=== PATIENT | female | born 1950 | race Caucasian/White ===

== ENCOUNTER 2020-06-22 05:25 | Day surgery (SDC) | payer MEDICARE, MEDICAID ==
[2020-06-16 12:11] LABS: HEMATOCRIT 36.4 % (36.0-47.0); HEMOGLOBIN 12.1 g/dL (12.0-15.5); MEAN CORPUSCULAR HEMOGLOBIN 30.4 pg (27.0-33.4); MEAN CORPUSCULAR HGB CONC 33.3 g/dL (32.0-36.0); MEAN CORPUSCULAR VOLUME 92 fl (80-97); PLATELET COUNT 169 10^3/uL (150-450); RED BLOOD COUNT 3.98 10^6/uL (3.72-5.28); RED CELL DISTRIBUTION WIDTH 14.4 % (11.5-14.0); WHITE BLOOD COUNT 5.2 10^3/uL (4.0-10.5)
--- NOTE | 2020-06-16 12:40 | RADIOLOGY REPORT (SQ) ---
EXAM DESCRIPTION: CHEST PA/LATERAL IMAGES COMPLETED DATE/TIME: 06/16/2020 11:14 am REASON FOR STUDY: PRE-OP COMPARISON: None. EXAM PARAMETERS: NUMBER OF VIEWS: two views TECHNIQUE: Digital Frontal and Lateral radiographic views of the chest acquired. RADIATION DOSE: NA LIMITATIONS: none FINDINGS: LUNGS AND PLEURA: No opacities, masses or pneumothorax. No pleural effusion. MEDIASTINUM AND HILAR STRUCTURES: No masses or contour abnormalities. HEART AND VASCULAR STRUCTURES: Heart normal size. No evidence for failure. BONES: No acute findings. HARDWARE: None in the chest. OTHER: No other significant finding. IMPRESSION: NO SIGNIFICANT RADIOGRAPHIC FINDING IN THE CHEST. TECHNICAL DOCUMENTATION: JOB ID: [id number] 2010 [employer]- All Rights Reserved Reading location - IP/workstation name: [email or web address]
[2020-06-16 12:45] LABS: ANION GAP 13 (5-19); BLOOD UREA NITROGEN 14 mg/dL (7-20); CALCIUM 9.7 mg/dL (8.4-10.2); CARBON DIOXIDE 26 mmol/L (22-30); CHLORIDE 101 mmol/L (98-107); GLUCOSE 150 mg/dL (75-110); POTASSIUM 3.7 mmol/L (3.6-5.0)
[2020-06-16 12:51] LABS: ALCOHOL < 10 mg/dL (NONE DETECTED)
--- NOTE | 2020-06-17 00:29 | EKG REPORT ---
SEVERITY:- ABNORMAL ECG - SINUS RHYTHM NONSPECIFIC T ABNORMALITIES, LATERAL LEADS : Confirmed by: Al Jessica 17-Jun-2020 00:29:16
[~2020-06-22 05:25] MED LIST: CEFAZOLIN 2 GM/D5W RTU 2 GM/50 ML RTUPB IV ONE; CEFAZOLIN 2 GM/D5W RTU 2 GM/50 ML RTUPB IV PRN; LACTATED RINGERS 1000 ML IV PRN; LIDOCAINE 0.5% INJ-PF (5 MG/ML) 50 ML SDV SUBCUT PRN
[2020-06-22] MEDS ORDERED: FENTANYL CITRATE INJ/PF 100 MCG/2 ML AMPUL ONE ×2 (06:52→10:19)
[2020-06-22] MEDS ORDERED: HYDROMORPHONE HCL INJ/PF 2 MG/ML AMPULE ONE (06:52)
[2020-06-22] MEDS ORDERED: MIDAZOLAM 2 MG/2 ML INJ ONE (06:52)
[2020-06-22] MEDS ORDERED: LIDOCAINE 2% INJ (20 MG/ML) 20 ML MDV ONE (06:53)
[2020-06-22] MEDS ORDERED: PROPOFOL INJ 200 MG/20 ML VIAL IV ONE (06:53)
[2020-06-22] MEDS ORDERED: DEXMEDETOMIDINE INJ 80 MCG/20 ML VIAL IV ONE (06:53)
[2020-06-22] MEDS ORDERED: THROMBIN (BOVINE) 5000 UNIT EPITAXIS KIT ONE (06:59)
[2020-06-22] MEDS ORDERED: BACITRACIN INJ 50,000 UNIT VIAL ONE (06:59)
[2020-06-22] MEDS ORDERED: DEXAMETHASONE SOD PHOSPHATE INJ 4 MG/1 ML VIAL ONE ×2 (07:11→14:40)
[2020-06-22] MEDS ORDERED: PROPOFOL 1,000 MG/100 ML INFUS..BTL IV ONE ×2 (07:50→09:00)
[2020-06-22] MEDS ORDERED: ONDANSETRON HCL INJ/PF 4 MG/2 ML SDV IV PRN ×2 (09:09→13:48)
[2020-06-22] MEDS ORDERED: MORPHINE SULFATE 10 MG/ML INJ IV PRN ×2 (09:09→13:48)
[2020-06-22] MEDS ORDERED: DIPHENHYDRAMINE HCL 50 MG/ML VIAL IV PRN ×3 (09:09→13:48)
[2020-06-22] MEDS ORDERED: MEPERIDINE HCL/PF INJ 25 MG/1 ML DISP.SYRIN IV PRN (09:09)
[2020-06-22] MEDS ORDERED: FENTANYL CITRATE INJ/PF 100 MCG/2 ML AMPUL IV PRN ×3 (09:09)
--- NOTE | 2020-06-22 10:04 | Operative Report ---
Operative Report DATE OF SURGERY: 06/22/20 PREOPERATIVE DIAGNOSIS: C4-5 herniated nucleus pulposus. C4-5 severe central s tenosis and myelopathy. C4-5 radiculitis and neck pain POSTOPERATIVE DIAGNOSIS: C4-5 herniated nucleus pulposus. C4-5 severe central stenosis and myelopathy. C4-5 radiculitis and neck pain. S/P C4-5 anterior cervical discectomy and fusion with instrumentation interbody spacer and allograft and iliac crest aspiration right iliac crest through separate incision. OPERATION: C4-5 anterior cervical discectomy and fusion with instrumentation interbody spacer and allograft and iliac crest aspiration right iliac crest through separate incision. SURGEON: JONATHAN FLORES HOUSE CARPENTER: SANJEEV DAVIDSON ANESTHESIA: GA ESTIMATED BLOOD LOSS: 50 cc INTRAOPERATIVE FINDINGS: Implants utilized are Titan TCS 5 mm x 6 degree lordotic by 14 x 12 mm spacer 3.8 x 16 mm screw in the C4 vertebral body and 3.5 x 60 mm screw in the C5 vertebral body as well as anterior plate 1.5 cc of mastergraft calcium triphosphate putty to be used in interbody spacer all from [employer] PROCEDURE: Patient is brought into the room and placed under general anesthesia. The patient received 2 g of Ancef within 1 hour of cut time. The patient had a Shultz catheter placed at the beginning of the case and removed at the end of the case. The patient had SCDs and a warming blanket placed as well. The patient is placed on the radiolucent OSI table in the supine position with a bolster between the shoulder blades. After appropriate surgical timeout, the right iliac crest is aspirated 7 cm posterior to the anterior superior iliac spine. A total of 3 cc are aspirated. The skin is marked under lateral C-arm fluoroscopy to giuseppe the appropriate levels. A transverse incision is carried out through the skin and electrocautery was used to maintain hemostasis. The platysma was incised and dissection was carried down through the pretracheal fascia down onto the pre-vertebral fascia. [place] retractors were used to retract mediolaterally and the appropriate disc space is marked with a bent needle and lateral C-arm fluoroscopy is obtained to verify the appropriate levels. Upon verification of the C4 5 level, [place] pin retractors are positioned at C4 and C5 and used to retract cephalad and caudad. The microscope was brought in under the microscope a complete anterior spur resection is carried out and complete discectomy endplates are also curetted to good bleeding bone in the posterior longitudinal ligament is resected as well as any posterior osteophytes as well as bilateral foraminotomies are performed. The appropriate size interbody spacer is determined and positioned in interbody space filled with bone marrow aspirate and allograft. Cranial motor testing was then obtained to verify good signals. The cast bar pins are removed and the holes are filled with bone wax. The appropriate anterior plate is positioned and screws are drilled and screws are placed in C4-C5. The screws are final tightened into the plate. And final cranial motor testing is obtained. Final C arm fluoroscopy is obtained to verify position of the screws and plate. The wound is irrigated with a liter of bacitracin irrigation. A 7 flat Belarusian drain is brought in inferior and lateral to the incision placed the negative JARVIS pressure. The JARVIS drain is sutured to the skin. The platysma was reapproximated with 2-0 Vicryl. The skin is reapproximated with a running subcuticular 3-0 Monocryl stitch. Please note this procedure could not of been done without the assistance of Daniel Davidson physician dental assistant and working under the microscope and carrying out the discectomy and placing the spacers. Please note that bone marrow aspiration CPT code 07567 utilized for the graft is better choice over structural bone harvesting from the iliac crest which has 20% chronic postoperative iliac crest and hip pain and also aspiration is less expensive. Both techniques have similar fusion rates for one level instrumented fusion with interbody spacer.
[2020-06-22] MEDS ORDERED: METHOCARBAMOL INJ/PF 1000 MG/10 ML SDV ONE (10:11)
[2020-06-22] MEDS ORDERED: DIPHENHYDRAMINE HCL 25 MG CAPSULE PO PRN ×2 (10:52→13:48)
[2020-06-22] MEDS: HYDROCOD/ACETAMIN 7.5-325 MG/15 ML ORAL SOLN UDCUP PO PRN (12:00)
[2020-06-22] MEDS ORDERED: HYDROCOD/ACETAMIN 7.5-325 MG/15 ML ORAL SOLN UDCUP ONE (12:03)
--- NOTE | 2020-06-22 13:03 | PDOC PROGRESS REPORT ---
Subjective Date:: 06/22/20 Subjective:: I was called to the patient's bedside because she fell out of the stretcher onto the ground had some bleeding from the scalp Reason For Visit: M50.10 CERVICAL DISC DISORDER W RADICULOPATHY, UNS The patient in day surgery fell out of the stretcher onto the ground and hit her head and had some bleeding from her scalp Physical Exam Vital Signs: Temp Pulse Resp BP Pulse Ox 97.3 F 88 17 148/93 H 89 L 06/22/20 11:49 06/22/20 11:55 06/22/20 11:55 06/22/20 11:55 06/22/20 11:55 Intake & Output 06/21/20 06/22/20 06/23/20 06:59 06:59 06:59 Intake Total 0 1850 Output Total 150 Balance 0 1700 General appearance: PRESENT: no acute distress Head exam: PRESENT: other - Patient has a hematoma on the right side of the scalp where she impacted against the ground there is no focal laceration. Neck exam: PRESENT: other - Patient's dressing is intact with minimal output from the drain patient reports her arms feel better. Results Laboratory Results: 06/16/20 10:23 06/22/20 06:23 06/22/20 06/22/20 06:23 06:23 Glucose 115 H Blood Type AB POSITIVE Antibody Screen NEGATIVE Impressions: Chest X-Ray 06/16/20 00:00 IMPRESSION: NO SIGNIFICANT RADIOGRAPHIC FINDING IN THE CHEST. Assessment & Plan - Time Anticipated Discharge Disposition: Home, Self Care Anticipated Discharge Timeframe: within 24 hours Time Spent with patient: 10 minutes - Plan Summary Plan Summary: Patient is doing well but we will obtain a stat CT scan of the head and of the neck we will plan on keeping her here overnight making sure she is more awake and alert I am worried that that was the reason why she slid out of the stretche r. She was not clearheaded and lost balance.
[2020-06-22] MEDS ORDERED: RINGERS SOLUTION,LACTATED 1,000 ML IV PRN (13:40)
[2020-06-22] MEDS ORDERED: MAGNESIUM HYDROXIDE SUSP 30 ML UDCUP PO PRN (13:48)
[2020-06-22] MEDS ORDERED: ACETAMINOPHEN 325 MG TABLET PO PRN (13:48)
[2020-06-22] MEDS ORDERED: PHENOL/SODIUM PHENOLATE 100 SPRAY/177 ML BOTTLE PO PRN (13:48)
[2020-06-22] MEDS ORDERED: PROMETHAZINE HCL INJ 25 MG/1 ML VIAL IM PRN (13:48)
[2020-06-22] MEDS ORDERED: DIAZEPAM 5 MG TABLET PO PRN (13:48)
[2020-06-22] MEDS ORDERED: PROMETHAZINE HCL 25 MG TABLET PO PRN (13:48)
[2020-06-22] MEDS ORDERED: HYDROXYZINE PAMOATE 25 MG CAPSULE PO PRN (13:53)
[2020-06-22] MEDS ORDERED: CEFAZOLIN 2 GM/D5W RTU 2 GM/50 ML RTUPB IV SCH (14:00)
--- NOTE | 2020-06-22 14:05 | RADIOLOGY REPORT (SQ) ---
EXAM DESCRIPTION: CT HEAD WITHOUT IMAGES COMPLETED DATE/TIME: 06/22/2020 1:32 pm REASON FOR STUDY: S00.80XA FALL M50.10 CERVICAL DISC DISORDER W RADICULOPATHY, UNSP CERVICAL M50.30 OTHER CERVICAL DISC DEGENERATION, UNSP CERVICAL REGIO M48.02 SPINAL STENOSIS, CERVICAL REGION COMPARISON: None. TECHNIQUE: Axial images acquired through the brain without intravenous contrast. Images reviewed wi th bone, brain and subdural windows. Additional sagittal and coronal reconstructions were generated. Images stored on PACS. All CT scanners at this facility use dose modulation, iterative reconstruction, and/or weight based d osing when appropriate to reduce radiation dose to as low as reasonably achievable (ALARA). [facility]: Dose Right [facility]: CareDose [facility]: Dose Right [facility]: Teradose 4D [facility]: [employer] RADIATION DOSE: CT Rad equipment meets quality standard of care and radiation dose reduction techniq ues were employed. CTDIvol: 53.2 mGy. DLP: 1017 mGy-cm. mGy. LIMITATIONS: None. FINDINGS: VENTRICLES: Normal size and contour. CEREBRUM: No masses. No hemorrhage. No midline shift. No evidence for acute infarction. Normal gra y/white matter differentiation. No areas of low density in the white matter. CEREBELLUM: No masses. No hemorrhage. No alteration of density. No evidence for acute infarction. EXTRAAXIAL SPACES: No fluid collections. No masses. ORBITS AND GLOBE: No intra- or extraconal masses. Normal contour of globe without masses. CALVARIUM: No fracture. PARANASAL SINUSES: No fluid or mucosal thickening. SOFT TISSUES: No mass or hematoma. OTHER: No other significant finding. IMPRESSION: NORMAL BRAIN CT WITHOUT CONTRAST. EVIDENCE OF ACUTE STROKE: NO. COMMENT: Quality ID # 436: Final reports with documentation of one or more dose reduction techniques (e.g., Automated exposure control, adjustment of the mA and/or kV according to patient size, use of iterative reconstruction technique) TECHNICAL DOCUMENTATION: JOB ID: [id number] 2010 [employer]- All Rights Reserved Reading location - IP/workstation name: [email or web address]-
--- NOTE | 2020-06-22 14:14 | RADIOLOGY REPORT (SQ) ---
EXAM DESCRIPTION: CT CERVICAL SPINE WITHOUT IMAGES COMPLETED DATE/TIME: 06/22/2020 1:32 pm REASON FOR STUDY: S00.80XA FALL M50.10 CERVICAL DISC DISORDER W RADICULOPATHY, UNSP CERVICAL M50.30 OTHER CERVICAL DISC DEGENERATION, UNSP CERVICAL REGIO M48.02 SPINAL STENOSIS, CERVICAL REGION COMPARISON: None. TECHNIQUE: Axial images acquired through the cervical spine without intravenous contrast. Images re viewed with lung, soft tissue and bone windows. Reconstructed coronal and sagittal MPR images review ed. Images stored on PACS. All CT scanners at this facility use dose modulation, iterative reconstruction, and/or weight based d osing when appropriate to reduce radiation dose to as low as reasonably achievable (ALARA). [facility]: Dose Right [facility]: CareDose [facility]: Dose Right [facility]: Teradose 4D [facility]: [employer] RADIATION DOSE: CT Rad equipment meets quality standard of care and radiation dose reduction techniq ues were employed. CTDIvol: 25.9 mGy. DLP: 522 mGy-cm. mGy. LIMITATIONS: None. FINDINGS: ALIGNMENT: Mild reversal of the normal lordotic curvature on the basis of spondylotic franco ges. MINERALIZATION: Mineralization is normal. VERTEBRAL BODIES: No fractures or dislocation. DISCS: Multilevel disc space narrowing with osteophytes. Notably, the these findings results in mode rate central canal and mild to moderate neural foraminal stenosis at the C5 through C7 levels. FACETS, LATERAL MASSES, POSTERIOR ELEMENTS: Facet arthropathy. No fractures. No dislocation. No ac fahad findings. HARDWARE: Status post C4/5 fusion with interbody spacer. No evidence of hardware complication. VISUALIZED RIBS: No fractures. LUNG APICES AND SOFT TISSUES: A tubular structure enters the left anterior cervical soft tissues at t he level of the thyroid gland and courses medial to the left sternocleidomastoid muscle, terminating adjacent to the left carotid artery. Multiple foci of subcutaneous gas are seen throughout the left cervical soft tissues. OTHER: No other significant finding. IMPRESSION: An apparent soft tissue drain is seen within the left anterior soft tissues terminating adjacent to the left carotid artery. Multiple foci of gas seen throughout the left cervical soft tis sues are not entirely unexpected in the immediate postsurgical setting. Multiple foci of subcutaneou s gas are seen throughout the cervical soft tissues along with device. Status post C4/5 fusion with interbody spacer. Background of multilevel spondylotic changes. TECHNICAL DOCUMENTATION: JOB ID: [id number] Quality ID # [id number]: Final reports with documentation of one or more dose reduction techniques (e.g., Au tomated exposure control, adjustment of the mA and/or kV according to patient size, use of iterative reconstruction technique) 2010 [employer]- All Rights Reserved Reading location - IP/workstation name: [email or web address] / [email or web address]
[2020-06-22] MEDS ORDERED: ACETAMINOPHEN SOLN 325 MG/10.15 ML UDCUP ONE (14:28)
[2020-06-22] MEDS ORDERED: PHENYLEPHRINE HCL INJ/PF 10 MG/1 ML SDV ONE (14:40)
[2020-06-22] MEDS ORDERED: ROCURONIUM BROMIDE INJ 50 MG/5 ML VIAL IV ONE (14:40)
[2020-06-22] MEDS ORDERED: ONDANSETRON HCL INJ/PF 4 MG/2 ML SDV ONE (14:40)
[2020-06-22] MEDS ORDERED: METFORMIN HCL 500 MG PO SCH (18:00)
[2020-06-22] MEDS: CEFAZOLIN SODIUM 2 GM in DEXTROSE 5%-WATER 100 ML IV SCH (18:02)
[2020-06-22] MEDS: ROPINIROLE HCL 1 MG TABLET PO SCH (23:08)
[2020-06-23] MEDS: CEFAZOLIN SODIUM 2 GM in DEXTROSE 5%-WATER 100 ML IV SCH (01:46)
[2020-06-23] MEDS: OXYCODONE-ACETAMINOPHEN 5-325 MG TABLET PO PRN ×2 (06:11→21:44)
[2020-06-23] MEDS: METHOCARBAMOL 750 MG TABLET PO PRN ×2 (06:11→21:43)
[2020-06-23] MEDS: FAMOTIDINE 20 MG TABLET PO SCH ×3 (07:15→18:17)
[2020-06-23] MEDS: SENNOSIDES/DOCUSATE 8.6-50 MG 1 EACH TABLET PO SCH ×3 (07:16→18:17)
[2020-06-23] MEDS ORDERED: PRAVASTATIN SODIUM 10 MG PO SCH (10:00)
[2020-06-23] MEDS ORDERED: (PENDING PHARMACY ID) (Mirabegron [Myrbetriq] 50 MG Tab.Er.24h) PO SCH (10:00)
[2020-06-23] MEDS ORDERED: ROPINIROLE HCL 0.5 MG PO SCH (10:00)
[2020-06-23] MEDS: LOSARTAN POTASSIUM 50 MG TABLET PO SCH (10:07)
[2020-06-23] MEDS: METFORMIN HCL 500 MG TABLET PO SCH ×2 (10:07→16:37)
[2020-06-23] MEDS: DULOXETINE HCL 30 MG CAPSULE.DR PO SCH (10:07)
[2020-06-23] MEDS: POLYETHYLENE GLYCOL 3350 POWDER 17 GM/1 PACKET PO SCH (10:08)
--- NOTE | 2020-06-23 10:57 | RADIOLOGY REPORT (SQ) ---
EXAM DESCRIPTION: NO CHG FLUORO; CERV SP 3 VIEW OR LESS IMAGES COMPLETED DATE/TIME: 06/22/2020 10:29 am REASON FOR STUDY: CERVICAL FUSION ASSISTED WITH FLUORO IN OR COMPARISON: None. FLUOROSCOPY TIME: 0.3 minutes 5 Images saved to PACS LIMITATIONS: None. PROCEDURE: Cervical fusion assisted with fluoro FINDINGS: Images from fluoro document placement of anterior hardware at C4-5. IMPRESSION: Cervical fusion assisted with fluoro. Refer to operative note for further information. COMMENT: PQRS 6045F: Fluoroscopy time of the procedure is documented in the report. TECHNICAL DOCUMENTATION: JOB ID: [id number] 2010 [employer]- All Rights Reserved Reading location - IP/workstation name: [email or web address]
--- NOTE | 2020-06-23 10:57 | RADIOLOGY REPORT (SQ) ---
EXAM DESCRIPTION: NO CHG FLUORO; CERV SP 3 VIEW OR LESS IMAGES COMPLETED DATE/TIME: 06/22/2020 10:29 am REASON FOR STUDY: CERVICAL FUSION ASSISTED WITH FLUORO IN OR COMPARISON: None. FLUOROSCOPY TIME: 0.3 minutes 5 Images saved to PACS LIMITATIONS: None. PROCEDURE: Cervical fusion assisted with fluoro FINDINGS: Images from fluoro document placement of anterior hardware at C4-5. IMPRESSION: Cervical fusion assisted with fluoro. Refer to operative note for further information. COMMENT: PQRS 6045F: Fluoroscopy time of the procedure is documented in the report. TECHNICAL DOCUMENTATION: JOB ID: [id number] 2010 [email or web address]- All Rights Reserved Reading location - IP/workstation name: [email or web address]
[2020-06-23] MEDS: HYDROCOD/ACETAMIN 7.5-325 MG/15 ML ORAL SOLN UDCUP PO PRN (16:36)
[2020-06-23] MEDS: ROPINIROLE HCL 1 MG TABLET PO SCH (21:44)
[2020-06-24] MEDS ORDERED: BISACODYL 10 MG SUPP.RECT PR PRN (05:00)
[2020-06-24] MEDS ORDERED: BISACODYL 5 MG TABEC PO PRN (05:00)
--- NOTE | 2020-06-24 08:57 | PDOC DISCHARGE SUMMARY ---
General - Admit/Disc Date/PCP Admission Date/Primary Care Provider: Patient was admitted on 1117 and discharged on 06/24/2020 Discharge Date: 06/24/20 - Discharge Diagnosis Final Diagnosis: Status post C4-5 fusion - Assessment Summary: Patient was admitted after having sustained a fall out of stretcher onto the ground evaluated with CT scan and evaluated over 2 days is doing well the area of bruising on her scalp has improved patient has no additional neck or back or head pain primarily sore throat associated with a cervical fusion. - Additional Information Resuscitation Status: Full Code Discharge Diet: Full Liquids Discharge Activity: No Driving, No Lifting/Push/Pulling Referrals: SONDRA ARRINGTON FNP [Primary Care Provider] - Home Medications: Alendronate Sodium 70 mg PO YING 06/22/20 Duloxetine HCl 30 mg PO QAM 06/22/20 Famotidine [Acid Controller] 20 mg PO BID 06/22/20 Hydroxyzine Pamoate 25 mg PO TID PRN 06/22/20 Hydroxyzine Pamoate [Vistaril 25 mg Capsule] 50 mg PO HSP PRN 06/22/20 Insulin Glargine,Hum.rec.anlog [Lantus Insulin 100 Unit/1 ml 10 ml] 20 units SQ QAM 06/22/20 Losartan Potassium 50 mg PO QAM 06/22/20 Metformin HCl [Metformin HCl ER] 1,000 mg PO BID 06/22/20 Mirabegron [Myrbetriq] 50 mg PO QAM 06/22/20 Multivitamin [Multiple Vitamins] 1 tab PO DAILY 06/22/20 Pravastatin Sodium 10 mg PO QPM 06/22/20 Ropinirole HCl 1 mg PO QHS 06/22/20 Additional Information: Keep the dressing clean and dry will follow up in the office in 10 days no lifting more than 2 to 3 pounds no bending kneeling pushing or pulling patient is to keep hydrated by drinking at least 10 cups of water per day if there is any problems she will call us back. History of Present Illiness History of Present Illness: JOVANY VILLA is a 69 year old female Physical Exam Vital Signs: Temp Pulse Resp BP Pulse Ox 97.7 F 93 18 133/69 H 96 06/24/20 07:57 06/24/20 00:09 06/24/20 00:09 06/24/20 00:09 06/24/20 00:09 Intake & Output 06/23/20 06/24/20 06/25/20 06:59 06:59 06:59 Intake Total 2650 1447 Output Total 170 Balance 2480 1447 Results Laboratory Results: WBC 5.2 10^3/uL (4.0-10.5) 06/16/20 10:23 RBC 3.98 10^6/uL (3.72-5.28) 06/16/20 10:23 Hgb 12.1 g/dL (12.0-15.5) 06/16/20 10:23 Hct 36.4 % (36.0-47.0) 06/16/20 10:23 MCV 92 fl (80-97) 06/16/20 10:23 MCH 30.4 pg (27.0-33.4) 06/16/20 10:23 MCHC 33.3 g/dL (32.0-36.0) 06/16/20 10:23 RDW 14.4 % (11.5-14.0) H 06/16/20 10:23 Plt Count 169 10^3/uL (150-450) 06/16/20 10:23 Sodium 140.1 mmol/L (137-145) 06/16/20 10:23 Potassium 3.7 mmol/L (3.6-5.0) 06/16/20 10:23 Chloride 101 mmol/L (98-107) 06/16/20 10:23 Carbon Dioxide 26 mmol/L (22-30) 06/16/20 10:23 Anion Gap 13 (5-19) 06/16/20 10:23 BUN 14 mg/dL (7-20) 06/16/20 10:23 Creatinine 0.92 mg/dL (0.52-1.25) 06/16/20 10:23 Est GFR ( Amer) > 60 (>60) 06/16/20 10:23 Est GFR (MDRD) Non-Af > 60 (>60) 06/16/20 10:23 Glucose 115 mg/dL (75-110) H 06/22/20 06:23 POC Glucose 152 mg/dL (70-110) H 06/24/20 06:10 Hemoglobin A1c % 4.7 % (4.7-6.0) 06/16/20 10:23 Calcium 9.7 mg/dL (8.4-10.2) 06/16/20 10:23 Serum Alcohol < 10 mg/dL (NONE DETECTED) 06/16/20 10:23 COVID-19 Source See comment 06/16/20 10:24 COVID-19 ([facility]) Not Detected (Not Detect) 06/16/20 10:24 Blood Type AB POSITIVE 06/22/20 06:23 Antibody Screen NEGATIVE 06/22/20 06:23 Impressions: Chest X-Ray 06/16/20 00:00 IMPRESSION: NO SIGNIFICANT RADIOGRAPHIC FINDING IN THE CHEST. Cervical Spine X-Ray 06/22/20 00:00 IMPRESSION: Cervical fusion assisted with fluoro. Refer to operative note for further information. Fluoroscopy 06/22/20 00:00 IMPRESSION: Cervical fusion assisted with fluoro. Refer to operative note for further information. Cervical Spine CT 06/22/20 13:06 IMPRESSION: An apparent soft tissue drain is seen within the left anterior soft tissues terminating adjacent to the left carotid artery. Multiple foci of gas seen throughout the left cervical soft tissues are not entirely unexpected in the immediate postsurgical setting. Multiple foci of subcutaneous gas are seen throughout the cervical soft tissues along with device. Status post C4/5 fusion with interbody spacer. Background of multilevel spondylotic changes. Head CT 06/22/20 13:06 IMPRESSION: NORMAL BRAIN CT WITHOUT CONTRAST. EVIDENCE OF ACUTE STROKE: NO.
[2020-06-24] MEDS: POLYETHYLENE GLYCOL 3350 POWDER 17 GM/1 PACKET PO SCH (09:31)
[2020-06-24] MEDS: SENNOSIDES/DOCUSATE 8.6-50 MG 1 EACH TABLET PO SCH (09:31)
[2020-06-24] MEDS: DULOXETINE HCL 30 MG CAPSULE.DR PO SCH (09:32)
[2020-06-24] MEDS: LOSARTAN POTASSIUM 50 MG TABLET PO SCH (09:32)
[2020-06-24] MEDS: FAMOTIDINE 20 MG TABLET PO SCH (09:32)
[2020-06-24] MEDS: METFORMIN HCL 500 MG TABLET PO SCH (09:32)
[2020-06-24 12:23] VITALS: BP 125/75
== END 2020-06-24 13:53 | disposition home health service (06) ==
LOC: OROUT 05:25 → 4S 19:24 → OROUT 06-24 13:53
PROVIDERS: ATTEND Orthopaedic Surgery
DX: M48.02 Spinal stenosis, cervical region (principal); M50.021 Cervical disc disorder at C4-C5 level with myelopathy; M50.121 Cervical disc disorder at C4-C5 level with radiculopathy; S00.03XA Contusion of scalp, initial encounter; M50.30 Other cervical disc degeneration, unspecified cervical region; W17.89XA Other fall from one level to another, initial encounter; Z20.828 Contact with and (suspected) exposure to other viral communicable diseases; Z79.899 Other long term (current) drug therapy; Z79.4 Long term (current) use of insulin; E78.00 Pure hypercholesterolemia, unspecified; E11.9 Type 2 diabetes mellitus without complications; I10 Essential (primary) hypertension; K21.9 Gastro-esophageal reflux disease without esophagitis; E66.9 Obesity, unspecified; M17.12 Unilateral primary osteoarthritis, left knee; Z82.61 Family history of arthritis; M85.80 Other specified disorders of bone density and structure, unspecified site; Z96.659 Presence of unspecified artificial knee joint
CPT/HCPCS: 22551; 22853; 22845; 20939; 93005; 86900; 86901; 36415 ×3; 86850; 82962; 80307; 82947; 85027; 80048; 87070; 83036; 72040; 71046; 70450; 72125; 94799; 93010; 94760 ×2; 97530; 97116 ×2; 97162; 00600; C1716; C1713 ×2; C1776; U0003; A9270 ×18; J2250; J3490 ×5; J0690 ×3; J1100; J3010; J2704 ×2; J2800; J1170; J2370; J2405; J7060 ×2; C9803; 87635

== ENCOUNTER 2020-07-03 10:27 | Emergency (ER) | payer MEDICARE, MEDICAID ==
--- NOTE | 2020-07-03 10:45 | ER Document Report ---
ED Medical Screen (RME) - General Chief Complaint: Leg Pain Stated Complaint: LEG PAIN,SWELLING Time Seen by Provider: 07/03/20 10:41 Primary Care Provider: SONDRA ARRINGTON FNP [Primary Care Provider] - Follow up as needed Notes: HPI: 69-year-old female recent history of cervical fusion 1 week ago presenting with bilateral leg pain left worse than right. States swelling only started yesterday. No chest pain no shortness of breath. PHYSICAL EXAMINATION: There is moderate edema to the bilateral lower extremities 2+ pitting bilateral lower legs. Surgical scar to the anterior neck is noted I have greeted and performed a rapid initial assessment of this patient. A comprehensive ED assessment and evaluation of the patient, analysis of test results and completion of medical decision making process will be conducted by an additional ED providers. - Related Data Allergies/Adverse Reactions: No Known Allergies Allergy (Verified 07/03/20 10:40) Past Medical History - Past Medical History Cardiac Medical History: Reports: Hx Hypertension - TAKES MEDS Denies: Hx Atrial Fibrillation, Hx Congestive Heart Failure, Hx Coronary Artery Disease, Hx Heart Attack, Hx Hypercholesterolemia, Hx Peripheral Vascular Disease, Hx Pulmonary Embolism, Hx Heart Murmur Pulmonary Medical History: Denies: Hx Asthma, Hx Bronchitis, Hx COPD, Hx Pneumonia, Hx Respiratory Failure, Hx Sleep Apnea, Hx Tuberculosis Neurological Medical History: Denies: Hx Cerebrovascular Accident, Hx Seizures, Hx Parkinson's Disease Endocrine Medical History: Denies: Hx Graves' Disease, Hx Hyperthyroidism, Hx Hypothyroidism Renal/ Medical History: Denies: Hx End Stage Renal Disease, Hx Kidney Stones, Hx Ovarian Cysts, Hx Peritoneal Dialysis, Hx Pelvic Inflammatory Disease Malignancy Medical History: Denies: Hx Breast Cancer, Hx Cervical Cancer, Hx Leukemia, Hx Lung Cancer, Hx Ovarian Cancer GI Medical History: Denies: Hx Crohn's Disease, Hx Gastroesophageal Reflux Disea se, Hx Hiatal Hernia, Hx Irritable Bowel, Hx Liver Failure, Hx Pancreatitis, Hx Ulcer Musculoskeltal Medical History: Reports Hx Arthritis, Denies Hx Fibromyalgia, Denies Hx Multiple Sclerosis, Denies Hx Muscular Dystrophy, Denies Hx Systemic Lupus Erythematosus Psychiatric Medical History: Reports: Hx Depression, Hx Post Traumatic Stress Disorder - TAKES MEDS FOR ANXIETY Denies: Hx Bipolar Disorder, Hx Dementia, Hx Schizophrenia Traumatic Medical History: Denies: Hx Fractures Infectious Medical History: Denies: Hx HIV Past Surgical History: Reports: Hx Tonsillectomy - AT AGE 4. Denies: Hx Appendectomy, Hx Bowel Surgery, Hx Section, Hx Cholecystectomy, Hx Colostomy, Hx Coronary Artery Bypass Graft, Hx Gastric Bypass Surgery, Hx Herniorrhaphy, Hx Hysterectomy, Hx Mastectomy, Hx Pacemaker, Hx Tubal Ligation Physical Exam - Vital signs Vitals: Temp Pulse Resp BP Pulse Ox 97.7 F 89 16 135/77 H 98 07/03/20 10:37 07/03/20 10:37 07/03/20 10:37 07/03/20 10:37 07/03/20 10:37 Course - Vital Signs Vital signs: Temp Pulse Resp BP Pulse Ox 97.7 F 89 16 135/77 H 98 07/03/20 10:37 07/03/20 10:37 07/03/20 10:37 07/03/20 10:37 07/03/20 10:37 Doctor's Discharge - Discharge Referrals: SONDRA ARRINGTON FNP [Primary Care Provider] - Follow up as needed
--- NOTE | 2020-07-03 11:20 | ER Document Report ---
ED General - General Chief Complaint: Edema Stated Complaint: LEG PAIN,SWELLING Time Seen by Provider: 07/03/20 10:41 Primary Care Provider: SONDRA ARRINGTON FNP [Primary Care Provider] - Follow up as needed - [facility] Notes: Chief complaint: Bilateral lower extremity swelling History of present illness: 69-year-old female 1 week status post cervical fusio n presenting with increased swelling of both lower legs and some discomfort in left calf area with when she walks. Denies any chest pain or shortness of breath. She denies any past history of thromboembolic disease. She denies any history of CHF. She apparently has had some problems with venous insufficiency in lower extremities and usually wears support stockings. She has been off her feet more than usual since her surgery and apparently has not been wearing the support stockings. We note also that she ambulates using a quad cane due to a past right knee replacement. Patient is a type II diabetic and is not currently checking blood sugars at home and was not familiar with her previous hemoglobin A1c values. She also has a history of hypertension. Patient's primary care provider is NUNU Grayson in [facility]. Current Home Medications: Alendronate Sodium 70 mg PO YING 06/22/20 Duloxetine HCl 30 mg PO QAM 06/22/20 Famotidine [Acid Controller] 20 mg PO BID 06/22/20 Hydroxyzine Pamoate 25 mg PO TID PRN 06/22/20 Hydroxyzine Pamoate [Vistaril 25 mg Capsule] 50 mg PO HSP PRN 06/22/20 Insulin Glargine,Hum.rec.anlog [Lantus Insulin 100 Unit/1 ml 10 ml] 20 units SQ QAM 06/22/20 Losartan Potassium 50 mg PO QAM 06/22/20 Metformin HCl [Metformin HCl ER] 1,000 mg PO BID 06/22/20 Mirabegron [Myrbetriq] 50 mg PO QAM 06/22/20 Multivitamin [Multiple Vitamins] 1 tab PO DAILY 06/22/20 Pravastatin Sodium 10 mg PO QPM 06/22/20 Ropinirole HCl 1 mg PO QHS 06/22/20 - Related Data Allergies/Adverse Reactions: No Known Allergies Allergy (Verified 07/03/20 10:40) Past Medical History - General Information source: Patient, Relative - Social History Smoking Status: Never Smoker Chew tobacco use (# tins/day): No Drug Abuse: None Lives with: Family Family History: Reviewed & Not Pertinent Patient has homicidal ideation: No - Past Medical History Cardiac Medical History: Reports: Hx Hypertension - TAKES MEDS Denies: Hx Atrial Fibrillation, Hx Congestive Heart Failure, Hx Coronary Artery Disease, Hx Heart Attack, Hx Hypercholesterolemia, Hx Peripheral Vascular Disease, Hx Pulmonary Embolism, Hx Heart Murmur Pulmonary Medical History: Denies: Hx Asthma, Hx Bronchitis, Hx COPD, Hx Pneumonia, Hx Respiratory Failure, Hx Sleep Apnea, Hx Tuberculosis Neurological Medical History: Denies: Hx Cerebrovascular Accident, Hx Seizures, Hx Parkinson's Disease Endocrine Medical History: Reports: Hx Diabetes Mellitus Type 2. Denies: Hx Graves' Disease, Hx Hyperthyroidism, Hx Hypothyroidism Renal/ Medical History: Denies: Hx End Stage Renal Disease, Hx Kidney Stones, Hx Ovarian Cysts, Hx Peritoneal Dialysis, Hx Pelvic Inflammatory Disease Malignancy Medical History: Denies: Hx Breast Cancer, Hx Cervical Cancer, Hx Leukemia, Hx Lung Cancer, Hx Ovarian Cancer GI Medical History: Denies: Hx Crohn's Disease, Hx Gastroesophageal Reflux Disease, Hx Hiatal Hernia, Hx Irritable Bowel, Hx Liver Failure, Hx Pancreatitis, Hx Ulcer Musculoskeletal Medical History: Reports Hx Arthritis, Denies Hx Fibromyalgia, Denies Hx Multiple Sclerosis, Denies Hx Muscular Dystrophy, Denies Hx Systemic Lupus Erythematosus Psychiatric Medical History: Reports: Hx Depression, Hx Post Traumatic Stress Disorder - TAKES MEDS FOR ANXIETY Denies: Hx Bipolar Disorder, Hx Dementia, Hx Schizophrenia Traumatic Medical History: Denies: Hx Fractures Infectious Medical History: Denies: Hx HIV Past Surgical History: Reports: Hx Orthopedic Surgery, Hx Tonsillectomy - AT AGE 4. Denies: Hx Appendectomy, Hx Bowel Surgery, Hx Section, Hx Cholecystectomy, Hx Colostomy, Hx Coronary Artery Bypass Graft, Hx Gastric Bypass Surgery, Hx Herniorrhaphy, Hx Hysterectomy, Hx Mastectomy, Hx Pacemaker, Hx Tubal Ligation Review of Systems - Review of Systems Notes: Constitutional: Negative for fever. HENT: Negative for sore throat. Eyes: Negative for visual changes. Cardiovascular: Negative for chest pain. Respiratory: Negative for shortness of breath. Gastrointestinal: Negative for abdominal pain, vomiting or diarrhea. Genitourinary: Negative for dysuria. Musculoskeletal: Negative for back pain. Skin: Negative for rash. Neurological: Negative for headaches, weakness or numbness. 10 point ROS negative except as marked above and in HPI. Physical Exam - Vital signs Vitals: Temp Pulse Resp BP Pulse Ox 97.7 F 89 16 135/77 H 98 07/03/20 10:37 07/03/20 10:37 07/03/20 10:37 07/03/20 10:37 07/03/20 10:37 - Notes Notes: GENERAL: Female patient approximately stated age appearing in no acute distress. SKIN: Good turgor no rashes. HEAD: Normocephalic atraumatic. EYES: PERRLA. EOMI. Conjunctivae and sclerae clear. EARS: CANALS AND TMS CLEAR. NOSE: CLEAR. Neck: Healing surgical scar anterior neck area with Steri-Strips in situ. Minimal soft tissue edema. No redness or drainage. MOUTH: Moist mucosa. Good dentition. No stridor or edema. No drooling. NECK: Supple. No masses or thyromegaly. No adenopathy. Carotids 2+ without bruits. No JVD. BACK: Symmetrical without tenderness. CHEST: Respirations unlabored. Breath sounds clear and symmetrical. HEART: Regular rhythm. No murmur gallop or rub. ABDOMEN: Soft nontender without masses, organomegaly or rebound. Bowel sounds normally active. No bruits. GENITALIA: Deferred. EXTREMITIES: 1+ bilateral pretibial. No calf tenderness. Old healed surgical scar right anterior knee area. Cap refill less than 1.5 seconds. Dorsalis pedis and posterior tibial pulses 3+ and symmetrical. NEUROLOGICAL: GCS 15. Alert and oriented x3. Fluent speech. Cranial nerves II through XII intact. Sensorimotor and cerebellar normal. Normal tone. PSYCHIATRIC: Appropriate affect. Course - Re-evaluation Re-evalutation: 07/03/20 12:46 Doppler ultrasound negative for DVT. Labs unremarkable. Normal chest x-ray per radiologist. I think this patient is not ambulating adequately and she has some venous insufficiency of lower extremities. I encouraged her to get up more and use her support stockings. I am also going to place her on some furosemide 20 mg daily for the next 5 days. Encouraged follow-up with PMD. Findings, clinical impression and plan of treatment have been discussed with patient/family. Understanding of current findings and recommendations has been acknowledged by them and there is agreement regarding disposition and follow-up. - Vital Signs Vital signs: Temp Pulse Resp BP Pulse Ox 97.7 F 89 16 135/77 H 98 07/03/20 10:37 07/03/20 10:37 07/03/20 10:37 07/03/20 10:37 07/03/20 10:37 - Laboratory Result Diagrams: 07/03/20 11:25 07/03/20 11:25 Laboratory results interpreted by me: 07/03/20 07/03/20 11:25 11:25 RBC 3.70 L Hgb 11.5 L Hct 33.2 L Glucose 169 H Total Protein 5.9 L Albumin 3.4 L - Diagnostic Test Radiology reviewed: Image reviewed, Reports reviewed Radiology results interpreted by me: 07/03/20 12:46 Venous Doppler Study 07/03/20 10:43 IMPRESSION: NO EVIDENCE DVT OR SVT IN EITHER LEG. Subcutaneous edema. Chest X-Ray 07/03/20 10:44 IMPRESSION: NO ACUTE RADIOGRAPHIC FINDING IN THE CHEST. - EKG Interpretation by Me Additional EKG results interpreted by me: 07/03/20 11:23 Twelve-lead EKG reviewed by me contemporaneously: 1105 hrs. Indication for study: Hypertension Rhythm: Normal sinus Rate: 85 Intervals: Normal QRS axis: Normal +[address]/T wave changes: None Comparison with prior tracing: Unchanged from prior EKG 06/16/2020 Interpretation: Normal tracing Discharge - Discharge Clinical Impression: Bilateral lower extremity edema, Venous insufficiency lower extremity Condition: Stable Disposition: HOME, SELF-CARE Additional Instructions: Spend more time on your feet walking. Use support stockings as previously recommended. Take prescribed fluid medicine for the next several days. Follow- up with your primary care provider within the next 1 week. Return here as needed for new or worsening symptoms: Pain that is worsening or unimproved Shortness of breath Uncontrolled vomiting High fever or shaking chills Overall worsening Prescriptions: Furosemide [Lasix 20 mg Tablet] 20 mg PO QAM #5 tablet Referrals: SONDRA ARRINGTON FNP [Primary Care Provider] - Follow up as needed
--- NOTE | 2020-07-03 11:21 | RADIOLOGY REPORT (SQ) ---
EXAM DESCRIPTION: CHEST SINGLE VIEW IMAGES COMPLETED DATE/TIME: 07/03/2020 10:57 am REASON FOR STUDY: leg swelling recent surgery COMPARISON: None. EXAM PARAMETERS: NUMBER OF VIEWS: One view. TECHNIQUE: Single frontal radiographic view of the chest acquired. RADIATION DOSE: NA LIMITATIONS: None. FINDINGS: LUNGS AND PLEURA: No opacities, masses or pneumothorax. No pleural effusion. MEDIASTINUM AND HILAR STRUCTURES: No masses. Contour normal. HEART AND VASCULAR STRUCTURES: Heart normal in size. Normal vasculature. BONES: No acute findings. HARDWARE: None in the chest. OTHER: No other significant finding. IMPRESSION: NO ACUTE RADIOGRAPHIC FINDING IN THE CHEST. TECHNICAL DOCUMENTATION: JOB ID: [id number] 2010 [employer]- All Rights Reserved Reading location - IP/workstation name: [email or web address]
[2020-07-03 11:42] LABS: ABSOLUTE BASOPHILS # (AUTO) 0.1 10^3/uL (0.0-0.2); ABSOLUTE EOSINOPHILS # (AUTO) 0.3 10^3/uL (0.0-0.6); ABSOLUTE LYMPHOCYTES (AUTO) 1.4 10^3/uL (0.5-4.7); ABSOLUTE MONOCYTES (AUTO) 0.4 10^3/uL (0.1-1.4); ABSOLUTE NEUT (AUTO) 3.6 10^3/uL (1.7-8.2); BASOPHILS % (AUTO) 1.2 % (0-2); EOSINOPHILS % (AUTO) 5.5 % (0-6); HEMATOCRIT 33.2 % (36.0-47.0); HEMOGLOBIN 11.5 g/dL (12.0-15.5); LYMPHOCYTES % (AUTO) 23.9 % (13-45); MEAN CORPUSCULAR HEMOGLOBIN 30.9 pg (27.0-33.4); MEAN CORPUSCULAR HGB CONC 34.5 g/dL (32.0-36.0); MEAN CORPUSCULAR VOLUME 90 fl (80-97); MONOCYTES % (AUTO) 6.5 % (3-13); PLATELET COUNT 220 10^3/uL (150-450); RED CELL DISTRIBUTION WIDTH 13.1 % (11.5-14.0); SEGMENTED NEUTROPHILS % (AUTO) 62.9 % (42-78); TOTAL CELLS COUNTED % (AUTO) 100 %; WHITE BLOOD COUNT 5.8 10^3/uL (4.0-10.5)
[2020-07-03 11:57] LABS: ALBUMIN 3.4 g/dL (3.5-5.0); ALKALINE PHOSPHATASE 95 U/L (38-126); ANION GAP 7 (5-19); ASPARTATE AMINO TRANSFERASE 22 U/L (14-36); BILIRUBIN,DIRECT 0.2 mg/dL (0.0-0.4); BILIRUBIN,TOTAL 0.6 mg/dL (0.2-1.3); BLOOD UREA NITROGEN 13 mg/dL (7-20); CALCIUM 9.2 mg/dL (8.4-10.2); CARBON DIOXIDE 29 mmol/L (22-30); CHLORIDE 104 mmol/L (98-107); GLUCOSE 169 mg/dL (75-110); POTASSIUM 3.8 mmol/L (3.6-5.0); TOTAL PROTEIN 5.9 g/dL (6.3-8.2)
[2020-07-03 12:08] LABS: NT PRO BNP 100 pg/mL (<125)
[2020-07-03 12:13] LABS: TROPONIN I < 0.012 ng/mL
--- NOTE | 2020-07-03 12:36 | RADIOLOGY REPORT (SQ) ---
EXAM DESCRIPTION: VENOUS BILATERAL LOWER IMAGES COMPLETED DATE/TIME: 07/03/2020 11:22 am REASON FOR STUDY: bilat leg swelling recent surgery COMPARISON: None. TECHNIQUE: Dynamic and static cordova scale and color images acquired of both lower extremity venous sy stems. Selected spectral images acquired with additional compression and augmentation maneuvers. Imag es stored on PACS. LIMITATIONS: None. FINDINGS: RIGHT LEG COMMON FEMORAL AND FEMORAL: Normal phasicity, compression and augmentation. No visualized echogenic m aterial on cordova scale. No defects on color images. POPLITEAL: Normal compression and augmentation. No visualized echogenic material on cordova scale. No de fects on color images. CALF VESSELS: Normal compression and augmentation. No visualized echogenic material on cordova scale. No defects on color image. GSV AND SSV: Normal compression. No visualized echogenic material on cordova scale. No defects on color images. ANY DEEP VENOUS INSUFFICIENCY: Not evaluated. ANY EVIDENCE OF POPLITEAL CYST: No. OTHER: Subcutaneous edema. LEFT LEG COMMON FEMORAL AND FEMORAL: Normal phasicity, compression and augmentation. No visualized echogenic m aterial on cordova scale. No defects on color images. POPLITEAL: Normal compression and augmentation. No visualized echogenic material on cordova scale. No de fects on color images. CALF VESSELS: Normal compression and augmentation. No visualized echogenic material on cordova scale. No defects on color images. GSV AND SSV: Normal compression. No visualized echogenic material on cordova scale. No defects on color images. ANY DEEP VENOUS INSUFFICIENCY: Not evaluated. ANY EVIDENCE POPLITEAL CYST: No. OTHER: Subcutaneous edema. IMPRESSION: NO EVIDENCE DVT OR SVT IN EITHER LEG. Subcutaneous edema. TECHNICAL DOCUMENTATION: JOB ID: [id number] [email or web address]- All Rights Reserved Reading location - IP/workstation name: [email or web address]
[2020-07-03 13:17] VITALS: BP 139/86
--- NOTE | 2020-07-03 15:03 | EKG REPORT ---
SEVERITY:- NORMAL ECG - SINUS RHYTHM : Confirmed by: Justin Stafford MD 03-Jul-2020 15:02:29
== END 2020-07-03 13:16 | disposition home or self-care (01) ==
LOC: ER 10:27
DX: I87.2 Venous insufficiency (chronic) (peripheral) (principal); R60.0 Localized edema; Z98.1 Arthrodesis status; E11.9 Type 2 diabetes mellitus without complications; I10 Essential (primary) hypertension; F41.9 Anxiety disorder, unspecified; F32.9 Major depressive disorder, single episode, unspecified; Z79.899 Other long term (current) drug therapy; Z79.4 Long term (current) use of insulin; Z86.718 Personal history of other venous thrombosis and embolism
CPT/HCPCS: 36415; 71045; 80053; 83880; 84484; 85025; 93005; 93010; 93970; 99285